=== PATIENT | female | born 1985 | race Caucasian/White ===

== ENCOUNTER 2023-01-06 11:20 | Outpatient (OUT) | payer BC, SELFPAY ==
[2023-01-06 11:49] LABS: Basophils Absolute Auto 0.1 10^3/uL (0.0-0.1); Basophils Percent Auto 0.7 % (0.2-2.0); Eosinophils Absolute Auto 0.1 10^3/uL (0.0-0.7); Eosinophils Percent Auto 0.8 % (0.9-7.0); Hemoglobin 13.3 g/dL (12.0-16.0); Immature Granulocytes Abs Auto 0.02 10^3/uL (0.00-0.03); Immature Granulocytes Pct Auto 0.3 % (0.0-0.5); Lymphocytes Absolute Auto 2.5 10^3/uL (1.2-3.8); Lymphocytes Percent Auto 33.2 % (20.5-60.0); Mean Corpuscular HGB Conc 34.1 g/dL (29.9-35.2); Mean Corpuscular Hemoglobin 31.2 pg (26.7-34.0); Mean Corpuscular Volume 91.5 fL (81.0-99.0); Mean Platelet Volume 9.4 fL (9.5-13.5); Monocytes Absolute Auto 0.6 10^3/uL (0.3-0.8); Neutrophils Absolute Auto 4.3 10^3/uL (1.4-6.5); Platelet Count 302 10^3/uL (150-450); Red Blood Count 4.26 10^6/uL (4.20-5.40); Red Cell Distribution Width 12.9 % (11.0-15.0); White Blood Count 7.6 10^3/uL (4.0-11.0)
[2023-01-06 11:59] LABS: Estimated Average Glucose 111 mg/dL; Glycohemoglobin A1C 5.5 % (4.5-6.2)
[2023-01-06 12:20] LABS: Alanine Aminotransferase 28 U/L (14-59); Albumin Globulin Ratio 1.2; Albumin Level 4.1 g/dL (3.4-5.0); Alkaline Phosphatase 66 U/L (46-116); Anion Gap 11.3; Aspartate Amino Transferase 18 U/L (15-37); BUN Creatinine Ratio 10.8; Bilirubin Total 0.4 mg/dL (0.2-1.0); Calcium 8.8 mg/dL (8.5-10.1); Carbon Dioxide 26.8 mmol/L (21.0-32.0); Chloride 103 mmol/L (98-107); Chol HDL Ratio 5.2; Cholesterol 196 mg/dL (<=200); Estimated GFR (African America >60 (>=60); Estimated GFR (Non-African Ame >60 (>=60); Free T3 2.82 pg/mL (2.18-3.98); Globulin 3.4 g/dL; Glucose 100 mg/dL (74-106); HDL Cholesterol 38 mg/dL (40-60); Potassium 4.1 mmol/L (3.5-5.1); Sodium 137 mmol/L (136-145); Thyroid Stimulating Hormone 1.088 uIU/mL (0.358-3.740); Total Protein 7.5 g/dL (6.4-8.2); Triglycerides 129 mg/dL (<=150); VLDL CHOLESTEROL 25.8 mg/dL
== END 2023-01-06 11:21 | disposition home or self-care (01) ==
PROVIDERS: PCP Nurse Practitioner Family; Visit Provider Nurse Practitioner Family
DX: Z00.00 Encounter for general adult medical examination without abnormal findings (principal)
CPT/HCPCS: 36415; 80053; 80061; 82306; 83036; 83525; 83540; 84436; 84443; 84481; 85025

== ENCOUNTER 2023-06-18 12:41 | Outpatient (OUT) | payer BC, SELFPAY ==
--- NOTE | 2023-06-18 12:44 | US_ITS ---
The [address] [address] Patient Name: KAREN LANGFORD MRN: [id number] date: 1985 Sex: F Assigned Patient Location: Current Patient Location: US Accession/Order Number: [id number] Exam Date: 06/18/2023 12:45 Report Date: 06/18/2023 13:33 At the request of: AMY SHARMA Procedure: US pelvis w/ transvaginal EXAM: Pelvic ultrasound HISTORY: . polycystic ovarian syndrome E28.2 . COMPARISON: None. TECHNIQUE: Transabdominal and transvaginal scanning was performed FINDINGS: Scanning of the pelvis demonstrates an anteverted uterus measuring 10.6 x 4.6 x 5.2 cm. Endometrial complex measures 11 mm. Right ovary measures 4.2 x 1.7 x 2.6 cm. Color-flow is noted. Follicles are noted. There is a 2.9 x 1.6 cm simple cyst in the right ovary. Left ovary measures 2 x 1.6 x 2.5 cm. Color-flow is noted. No masses are noted. Follicles are noted. No fluid is noted in the cul-de-sac. US/US pelvis w/ transvaginal IMPRESSION: 1. Normal-appearing anteverted uterus and normal endometrial complex. 2. Normal left ovary. 3. 2.9 x 1.6 cm simple cyst in the right ovary. Electronically authenticated by: ALEXANDER ORNELAS Date: 06/18/2023 13:33
[2023-06-18 13:31] LABS: Basophils Absolute Auto 0.1 10^3/uL (0.0-0.1); Basophils Percent Auto 0.9 % (0.2-2.0); Eosinophils Absolute Auto 0.1 10^3/uL (0.0-0.7); Eosinophils Percent Auto 0.8 % (0.9-7.0); Hematocrit 37.7 % (36.0-48.0); Hemoglobin 12.3 g/dL (12.0-16.0); Immature Granulocytes Abs Auto 0.01 10^3/uL (0.00-0.03); Immature Granulocytes Pct Auto 0.1 % (0.0-0.5); Lymphocytes Absolute Auto 2.6 10^3/uL (1.2-3.8); Lymphocytes Percent Auto 34.7 % (20.5-60.0); Mean Corpuscular HGB Conc 32.6 g/dL (29.9-35.2); Mean Corpuscular Hemoglobin 30.2 pg (26.7-34.0); Mean Corpuscular Volume 92.6 fL (81.0-99.0); Mean Platelet Volume 9.6 fL (9.5-13.5); Monocytes Absolute Auto 0.5 10^3/uL (0.3-0.8); Monocytes Percent Auto 7.2 % (1.7-12.0); Neutrophils Absolute Auto 4.2 10^3/uL (1.4-6.5); Neutrophils Percent Auto 56.3 % (43.0-75.0); Platelet Count 310 10^3/uL (150-450); Red Blood Count 4.07 10^6/uL (4.20-5.40); Red Cell Distribution Width 12.6 % (11.0-15.0); White Blood Count 7.5 10^3/uL (4.0-11.0)
[2023-06-18 14:08] LABS: Free T4 0.78 ng/dL (0.76-1.46)
[2023-06-18 14:15] LABS: HCG Quantitative <1 mIU/mL; Thyroid Stimulating Hormone 1.042 uIU/mL (0.358-3.740)
[2023-06-18 14:21] LABS: Estimated Average Glucose 117 mg/dL; Glycohemoglobin A1C 5.7 % (4.5-6.2)
[2023-06-19 09:11] LABS: FSH 5.9 mIU/mL (.)
[2023-06-22 00:07] LABS: DHEA, Serum 227 ng/dL (31-701)
== END 2023-06-18 12:42 | disposition home or self-care (01) ==
LOC: US 12:41
PROVIDERS: PCP Nurse Practitioner Family; Visit Provider Obstetrics & Gynecology
DX: E28.2 Polycystic ovarian syndrome (principal); N92.6 Irregular menstruation, unspecified; E34.9 Endocrine disorder, unspecified; N94.89 Other specified conditions associated with female genital organs and menstrual cycle; R14.0 Abdominal distension (gaseous); N83.291 Other ovarian cyst, right side
CPT/HCPCS: 36415; 76830; 76856; 82626; 82627; 83001; 83002; 83036; 84439; 84443; 84702; 85025

== ENCOUNTER 2023-06-28 19:47 | Outpatient (REF) | payer BC, SELFPAY ==
--- OUTSIDE RECORDS SUMMARY | 2023-06-28 19:51 | XMS_ITS | CCD ---
Author Name Unknown Address [address] [place] [address] [address] [place] [address] Organization [facility] Care Team Providers Care Catering Barista Name Role Phone None Unavailable Unavailable Edgar Ball Unavailable Unavailable MISMac, DR HENLEY Primary Care Unavailable GILES, DR HARLAN Del Valle Admitting Unavailabl e GILES, DR HARLAN Del Valle Attending Unavailabl e GILES, DR HARLAN Del Valle Consulting Unavailabl e AZIZA, DR LUCY Schulte Consulting Unavailable ALEXANDER ORNELAS Consulting Unavailable AMY SHARMA Attending Unavailable Problems Problem Classification Problem Date Documented Da te Episodic/Chronic Other lower respiratory disease (3 sources) Shortness of breath; Translations: [SHORTNESS OF BREATH] Onset: 04-24-2022 Episodic Other lower respiratory disease (1 source) Dyspnea, unspecified; Translations: [DYSPNEA UNSPECIFIED] Onset: 04-27-2022 Episodic Pneumonia (except that caused by tuberculosis or sexually transmitted disease) (1 source) Pneumonia, unspecified organism; Translations: [PNEUMONIA UNSPECIFIED ORGANISM] Onset: 04-27-2022 Episodic Unclassified (1 source) Unknown / UNK(Unknown) Onset: 03-11-2013 Unclassified (1 source) UNVACCINATED FOR COVID-19; Translations: [UNVACCINATED FOR COVID-19] Onset: 04-27-2022 Results Test Name Value Interpretation Reference Range Facil ity CBC AUTO DIFFon 04-24-2022 BASO # 0.1 103/ul Normal 0.0-0.1 [facility] Comment on above: Performed By: #### C BC #### [facility] [address] [place], [place] [address] Dr. Jose Marsh Basophils/100 WBC (Bld) 1.1 % Normal 0.2-2.0 [facility] Comment on above: Performed By: #### C BC #### [facility] [address] [place] [address] Dr. Jose Marsh EO # 0.2 103/ul Normal 0.0-0.7 [facility] Comment on above: Performed By: #### C BC #### [facility] [address] [place] [address] Dr. Jose Marsh Eosinophils/100 WBC (Bld) 3.6 % Normal 0.9-7.0 [facility] Comment on above: Performed By: #### C BC #### [facility] [address] [place] [address] Dr. Jose Marsh Erythrocyte distribution width (RBC) [Ratio] 12.5 % Normal 11.0-15.0 [facility] Comment on above: Performed By: #### C BC #### [facility] [address] [place] [address] Dr. Jose Marsh Hematocrit (Bld) [Volume fraction] 39.9 % Normal 36.0-48.0 [facility] Comment on above: Performed By: #### C BC #### [facility] [address] [place] [address] Dr. Jose Marsh Hemoglobin (Bld) [Mass/Vol] 13.9 g/dL Normal 12.0-16.0 [facility] Comment on above: Performed By: #### C BC #### [facility] [address] [place] [address] Dr. Jose Marsh IG # 0.01 10e3/ul Normal 0.00-0.03 [facility] Comment on above: Performed By: #### C BC #### [facility] [address] [place] [address] Dr. Jose Marsh IG % 0.2 % Normal 0.0-0.5 [facility] Comment on above: Performed By: #### C BC #### [facility] [address] [place] [address] Dr. Jose Marsh LYMPH # 1.4 103/ul Normal 1.2-3.8 [facility] Comment on above: Performed By: #### C BC #### [facility] [address] [place] [address] Dr. Jose Marsh Lymphocytes/100 WBC (Bld) 25.6 % Normal 20.5-60.0 [facility] Comment on above: Performed By: #### C BC #### [facility] [address] [place] [address] Dr. Jose Marsh MANUAL DIFF REQ NO Normal [facility] Comment on above: Performed By: #### C BC #### [facility] [address] [place] [address] Dr. Jose Marsh MCH (RBC) [Entitic mass] 30.9 pg Normal 26.7-34.0 [facility] Comment on above: Performed By: #### C BC #### [facility] [address] [place] [address] Dr. Jose Marsh MCHC (RBC) [Mass/Vol] 34.8 g/dL Normal 29.9-35.2 [facility] Comment on above: Performed By: #### C BC #### [facility] [address] [place] [address] Dr. Jose Marsh MCV (RBC) [Entitic vol] 88.7 fL Normal 81.0-99.0 [facility] Comment on above: Performed By: #### C BC #### [facility] [address] [place] [address] Dr. Jose Marsh MONO # 1.0 103/ul Critically high 0.3-0.8 [facility] Comment on above: Performed By: #### C BC #### [facility] [address] [place] [address] Dr. Jose Marsh Monocytes/100 WBC (Bld) 18.4 % Critically high 1.7-12.0 [facility] Comment on above: Performed By: #### C BC #### [facility] [address] [place] [address] Dr. Jose Marsh NEUT # 2.8 103/ul Normal 1.4-6.5 [facility] Comment on above: Performed By: #### C BC #### [facility] [address] [place] [address] Dr. Jose Marsh Neutrophils/100 WBC (Bld) 51.1 % Normal 43.0-75.0 [facility] Comment on above: Performed By: #### C BC #### [facility] [address] [place] [address] Dr. Jose Marsh Platelet mean volume (Bld) [Entitic vol] 9.6 fL Normal 9.5-13.5 [facility] Comment on above: Performed By: #### C BC #### [facility] [address] [place] [address] Dr. Jose Marsh PLT 274 103/ul Normal 150-450 [facility] Comment on above: Performed By: #### C BC #### [facility] [address] [place] [address] Dr. Jose Marsh RBC 4.50 106/ul Normal 4.20-5.40 [facility] Comment on above: Performed By: #### C BC #### [facility] [address] [place] [address] Dr. Jose Marsh WBC 5.6 103/ul Normal 4.0-11.0 [facility] Comment on above: Performed By: #### C BC #### [facility] [address] [place] [address] Dr. Jose Marsh CTA CHEST WO W CONon 11-28-2 022 CTA CHEST WO W CON EXAMINATION: CTA CHEST WO W CON HISTORY: SHORTNESS OF BREATH , elevated d-dimer COMPARISON: No relevant comparison available. TECHNIQUE: Multi-planar CT images were created with IV contrast. Axial, Coronal, and Sagittal images. Dose reduction techniques were achieved by using automated exposure control and/or adjustment of mA and/or kV according to patient size and/or use of iterative reconstruction technique. 3-D reconstruction was performed on a separate workstation. FINDINGS: VASCULATURE: No pulmonary embolism or abnormal opacity. LUNGS: Several small, faint patchy opacities within left lower lobe suggestive of infectious infiltrates. PLEURA: No mass, effusion, or pneumothorax. LAINA: No mass or adenopathy. MEDIASTINUM: No mass or adenopathy. CARDIAC: No enlargement, pericardial effusion, or pericardial thickening. AORTA: No aneurysm or dissection. CHEST WALL: No mass or axillary adenopathy. BONES: No bone lesion or fracture. LIMITED ABDOMEN: No suspicious findings. Limited images of the upper abdomen. OTHER: Negative. IMPRESSION: 1. No pulmonary embolism. 2. Trace amount of left lower lobe opacities favoring pneumonia over atelectasis. Electronically authenticated by: LUCY ERVIN Date: 2022-04-24 11:00 Normal [facility] Covid-19 PCR (CVDTBH)on 03-29 SARS-CoV-2 (COVID-19) RNA MIGUEL+probe Ql (Unsp spec) Not detected Normal NOT DETECTED [facility] Comment on above: Result Comment: When diagnostic testing is negative, the possibility of a false negative should be considered in the context of a patient's recent exposures and the presence of clinical signs and symptoms consistent with SARS-CoV-2. This test is not yet approved or cleared by the [place] FDA. When there are no FDA-approved or cleared tests available, and other criteria are met, FDA can make tests available under an emergency access mechanism called an Emergency Use Authorization (EUA). The EUA for this test is supported by the [employer] of Health and Human Service's declaration that circumstances exist to justify the emergency use of in vitro diagnostics for the detection and/or diagnosis of the virus that causes COVID-19. This EUA will remain in effect for the duration of the COVID-19 declaration justifying emergency of IVDs, unless it is terminated or revoked by the FDA (after which the test may no longer be used). Performed By: #### C VDTBH #### [facility] [address] [place] [address] [address] Jose Marsh D-DIMERon 04-24-2022 D-DIMER 1.47 mg/L FEU Critically high <=0.59 [facility] Comment on above: Performed By: #### D DIM #### [facility] [address] [place] [address] Dr. Jose Marsh D-DIMER COMMENTS SEE BELOW Normal [facility] Comment on above: Result Comment: Incr eases in D-Dimer concentration observed with thromboembolic events can be variable due to localization, size, and age of the thrombus. Therefore, a thromboembolic event cannot be diagnosed with certainty on the basis of the reference range. D-Dimers may also be elevated for a variety of disorders including: advanced age, , coronary disease, cancer, liver disease, infection, inflammation, hematoma, DIC, trauma, post-surgery, diabetes, thrombolytic or anticoagulant therapy, stress, and generalized hospitalization. Performed By: #### D DIM #### [facility] [address] [place] [address] Dr. Jose Marsh INFLUENZA A AND B AGon 04-24 INFLUANE SEE BELOW Normal [facility] Comment on above: Result Comment: Nega tive for Flu A protein angiten. Infection due to Flu A cannot be ruled out. Flu A angiten in the sample may be below the detection limit of the test. Performed By: #### I NFLUAB #### [facility] [address] [place] [address] Dr. Jose Marsh INFLUBNEG SEE BELOW Normal [facility] Comment on above: Result Comment: Nega tive for Flu B protein antigen. Infection due to Flu B cannot be ruled out. Flu B antigen in the sample may be below the detection limit of the test. Performed By: #### I NFLUAB #### [facility] [address] [place] [address] Dr. Jose Marsh INFLUENZA A AG Negative Normal NEGATIVE SEE COMMENT [facility] Comment on above: Performed By: #### I NFLUAB #### [facility] [address] [place] [address] Dr. Jose Marsh INFLUENZA B AG Negative Normal NEGATIVE SEE COMMENT [facility] Comment on above: Performed By: #### I NFLUAB #### [facility] [address] [place] [address] Dr. Jose Marsh INTERNAL CONTROLS Within Normal Limits Normal Wi thin Normal Limits [facility] Comment on above: Performed By: #### I NFLUAB #### [facility] [address] [place] [address] Dr. Jose Marsh TROPONIN, HIGH SENSITIVITYon 04-24-2022 HSTROP <4.0 Normal 4.0-51.3 [facility] Comment on above: Result Comment: CUT- OFF POINTS HAVE BEEN ESTABLISHED BASED ON THE FOURTH UNIVERSAL DEFINITIONS OF MYOCARDIAL INFARCTION. THE UPPER REFERENCE LIMIT (URL) OF TROPONIN, DEFINED THE 99TH PERCENTILE OF cTnI DISTRIBUTION IN A REFERENCE POPULATION, HAS BEEN CONFIRMED THE DECISION THRESHOLD FOR PA DIAGNOSIS. Performed By: #### H STROPN #### [facility] [address] [address] [address] Jose Marsh XR CHEST 1 Von 04-24-2022 XR CHEST 1 V EXAM: Chest x-ray HISTORY: . SHORTNESS OF BREATH . COMPARISON: None. TECHNIQUE: Single view of the chest FINDINGS: Heart and vascularity are unremarkable. Lungs are free of focal infiltrates. There is a slight scoliotic deformity of the spine with convexity to the right. IMPRESSION: No acute heart or lung disease identified. Electronically authenticated by: ALEXANDER ORNELAS Date: 2022-04-24 09:40 Normal [facility] Lab Reportson 11-21-2019 Lab Reports [id number]# 1.00CD:127 Normal [facility] Pre-Certification Formon Pre-Certification Form [id number]# 1.00CD:127 Normal [facility] Ambulatory Clinical Summaryo n 11-10-2019 Ambulatory Clinical Summary {[id number]}CD:[id number] Normal [facility] Facesheeton 11-06-2019 Facesheet [id number] #1.00CD:127 Normal [facility] Physician Referralon 020 Physician Referral [id number]# 1.00CD:127 Normal [facility] Ambulatory Patient Summaryon 08-08-2018 Ambulatory Patient Summary [address], [facility], [address] Visit Summary For KAREN SMITH We would like to thank you for allowing us to assist you with your healthcare needs. Our entire staff strives to provide an excellent experience for our patients and their families. The following includes information regarding your visit. Age: 33 years Sex: FEMALE : 1985 Address: [address] [place] [address], [address] Home: Work: -- Mobile: -- Primary Care Provider: Dario Morton MD Race: White Ethnicity: Not or Language: Bulgarian Health Plan: 1?[facility] Reason for Visit: sinus infection X1 week Follow-Up Information Referral Orders [facility] Established Office Appt Request *Est. 02/08/19 +/- 28 day(s), Future Order, MS reg, Dario Morton MD [facility] Established Office Appt Request *Est. 02/11/19 +/- 4 day(s), Future Order, re headaches, Dario Morton MD Future Appointments [facility] Clinic Phone: -- Fax: -- Appt. Date: 02/11/2019 3:45 PM Scheduled Provider: Dario Morton MD Future Orders [facility] Established Office Appt Request Requested Start Date\Time : 02/08/19 03:00:00 Additional Goals and Instructions: Allergies No Known Medication Allergies Vitals and Measurements this Visit (last charted value for your 08/08/2018 visit) Vital Signs This Visit Temperature Oral: 37 DegC Peripheral Pulse Rate: 77 bpm Pulse Site: Pulse Oximetry Systolic Blood Pressure: 106 mmHg Diastolic Blood Pressure: 62 mmHg BP Site: Left arm SpO2: 97 % Measurements This Visit Height: 171 cm Height (inches): 67 in Weight: 57.3 kg Weight (lb): 126 lb Body Mass Index: 19.6 kg/m2 BSA Measured: 2 m2 Smoking Status Former smoker, quit more than 30 days ago Procedures No Procedures Documented Problems and Health Issues Asthma Migraine Diagnoses This Visit Acute sinusitis (J01.90) Migraines (G43.909) Laboratory or Other Results This Visit (last charted value for your 08/08/2018 visit) No Laboratory or Other Results This Visit Medications and Immunizations Administered During This Visit No medication administered during this visit All Known Current Prescriptions and Reported Medications New Prescriptions this Visit Augmentin 875 mg-125 mg oral tablet (amoxicillin-clavula max) Take 1 tab(s) Oral Every 12 hours scheduled time for 10 Days, 0 refills authorized Prescriptions topiramate 25 mg oral tablet (topiramate) Take 1 tab(s)(25 Milligram) Oral every day for 30 Days, 5 refills authorized Home Medications ibuprofen 200 mg oral tablet (ibuprofen) Take 2 tab(s)(400 Milligram) Oral Every 4 hours for pain Spark (Template Non-Formulary) Take 1 drink(s) Oral every day [facility] Patient Handouton 08-08-2018 Patient Handout [facility] Patient Handouton 07-18-2018 Patient Handout [id number] .00OTGTIFF [facility] Patient Handout [id number] .[facility] 07-17-2018 Ambulatory Patient Summary [address], [facility], [address] Visit Summary For KAREN SMITH We would like to thank you for allowing us to assist you with your healthcare needs. Our entire staff strives to provide an excellent experience for our patients and their families. The following includes information regarding your visit. Age: 33 years Sex: FEMALE : 1985 Address: [address] [place] [address] Home: Work: -- Mobile: -- Primary Care Provider: Selene HARMAN, Dario Del Valle Race: White Ethnicity: Not or Language: Bulgarian Health Plan: 1?[facility] Reason for Visit: New patient exam Follow-Up Information Referral Orders [facility] Established Office Appt Request *Est. 08/14/18 +/- 4 day(s), Future Order, re headaches, Dario Morton MD Future Appointments [facility] Clinic Phone: -- Fax: -- Appt. Date: 08/14/2018 3:30 PM Scheduled Provider: Dario Morton MD Future Orders [facility] Established Office Appt Request Requested Start Date\Time : 08/14/18 15:30:00 Additional Goals and Instructions: Allergies No Known Medication Allergies Vitals and Measurements this Visit (last charted value for your 07/17/2018 visit) Vital Signs This Visit Peripheral Pulse Rate: 69 bpm Pulse Site: Pulse Oximetry Systolic Blood Pressure: 104 mmHg Diastolic Blood Pressure: 62 mmHg BP Site: Left arm SpO2: 99 % Measurements This Visit Height: 171 cm Height (inches): 67 in Weight: 60.2 kg Weight (lb): 132 lb Body Mass Index: 20.59 kg/m2 BSA Measured: 2 m2 Smoking Status Former smoker, quit more than 30 days ago Procedures section LEEP procedure of cervix (02/2009) Problems and Health Issues Asthma Migraine Urinary symptom change Diagnoses This Visit Asthma (J45.909) Migraines (G43.909) Subjective change in urination (R39.198) Laboratory or Other Results This Visit (last charted value for your 07/17/2018 visit) Urinalysis 07/17/2018 5:02 PM Leukocytes Urine Dipstick: Negative Nitrite Urine Dipstick: Negative Urobilinogen Urine Dipstick: 0.2 mg/dl Protein Urine Dipstick: Negative pH Urine Dipstick: 6.5 Blood Urine Dipstick: Negative Specific [place] Urine Dipstick: 1.020 Ketones Urine Dipstick: Other: 15mg/dL Bilirubin Urine Dipstick: Negative Glucose Urine Dipstick: Negative Urine Color Urine Dipstick: Yellow Urine Appearance Urine Dipstick: Slightly Cloudy Medications and Immunizations Administered During This Visit No medication administered during this visit All Known Current Prescriptions and Reported Medications New Prescriptions this Visit topiramate 25 mg oral tablet (topiramate) Take 1 tab(s)(25 Milligram) Oral every day for 30 Days, 5 refills authorized Prescriptions No previous prescriptions documented Home Medications ibuprofen 200 mg oral tablet (ibuprofen) Take 2 tab(s)(400 Milligram) Oral Every 4 hours for pain Spark (Template Non-Formulary) Take 1 drink(s) Oral every day [facility] Patient Handouton 07-17-2018 Patient Handout [facility] Encounters Encounter Date Encounter Type Care Provider Facility Start: 06-18-2023 End: 06-18-2023 ambulatory AMY SHARMA Not Available Start: 04-24-2022 End: 04-24-[address] HENLEY [facility] Facility: Start: 03-11-2013 Ambulatory None Facility:[facility] Payers Date Payer Category Payer Unknown [id number] 1985 Unknown [id number] 1960 Unknown [id number] Summary Purpose Family History No Family History Records FoundNo Family History Records FoundNo Family History Records FoundNo Family History Records FoundNo Family History Records Found Advance Directives No Advanced Directives Records FoundNo Advanced Directives Records FoundNo Advanced Directives Records FoundNo Advanced Directives Records FoundNo Advanced Directives Records Found Hospital Course Note [facility] Cl inic Clinical Discharge Summary PERSON INFORMATION Name KAREN SMITH Age 33 Years [birth year] Sex FEMALE Language Bulgarian PCP Sleene HARMAN, Dario Del Valle Marital Status Med Service Acct# Arrival 08/08/18 09:20:14 Visit Reason Acuity LOS 000 00:12 Address: [address] [place] [address] Comment: PROVIDER INFORMATION VITALS INFORMATION Vital Sign Triage Latest Temp Oral 37 DegC 37 DegC Temp Temporal Temp Intravascular Temp Axillary Temp Rectal 02 Sat 97 % 97 % Respiratory Rate Peripheral Pulse Rate 77 bpm 77 bpm Apical Heart Rate Blood Pressure 106 mmHg / 62 mmHg 106 mmHg / 62 mmHg Comment: MEDICAL INFORMATION Allergy Info: No Known Medication Allergies Prescriptions Given: Prescription Display amoxicillin-clavulanate (Augmentin 875 mg-125 mg oral tablet) 1 tab(s), PO, q12hr, x 10 day(s), # 20 tab(s), 0 Refill(s), 08/18/18, [facility] [place] [address], 1 tab(s) PO q12hr,x10 day(s) Medication List: Fill New (more content not included)... Additional Source Comments INFORMATION SOURCE (unrecogn ized section and content) DATE CREATED AUTHOR 11/20/2017 [facility] DATE CREATED AUTHOR AUTHOR'S ORGANIZ ATION 02/12/[address] [facility] DATE CREATED AUTHOR AUTHOR'S ORGANIZ ATION 10/22/2020 [facility] DATE CREATED AUTHOR AUTHOR'S ORGANIZ ATION 04/27/2022 Sheldon Garsiaue [facility] DATE CREATED AUTHOR AUTHOR'S CHA ATION 06/18/2023 [facility] dical Specialists [facility] FOR RECORDS PERTAINING TO PATIENTS WHO ARE OR HAVE BEEN ENROLLED IN A CHEMICAL DEPENDENCY/SUBSTANCEABUSE PROGRAM, SOME INFORMATION MAY BE OMITTED. This clinical summary was aggregated from multiple sources. Caution should be exercised in using it in the provision of clinical care. This summary normalizes information from multiple sources, and as a consequence, information in this document may materially change the coding, format and clinical context of patient data. In addition, data may be omitted in some cases. CLINICAL DECISIONS SHOULD BE BASED ON THE PRIMARY CLINICAL RECORDS. [facility] [employer] provides no warranty or guarantee of the accuracy or completeness of information in this document.
[2023-07-04 10:09] LABS: Age Gdln ACOG Testing Note (.); HPV Aptima Negative (Negative); IGP, Aptima HPV, rfx 16/18,45 Note (.)
== END 2023-06-28 19:48 | disposition home or self-care (01) ==
LOC: LAB 19:47
PROVIDERS: PCP Nurse Practitioner Family; Visit Provider Obstetrics & Gynecology
DX: Z01.419 Encounter for gynecological examination (general) (routine) without abnormal findings (principal)
CPT/HCPCS: 87624; G0145

== ENCOUNTER 2023-07-09 | Outpatient (REF) | payer BC, SELFPAY ==
--- OUTSIDE RECORDS SUMMARY | 2023-07-13 12:36 | XMS_ITS | CCD ---
Author Name Unknown Address [address] [place] [address] Organization [facility] Care Team Providers Care Metal Solderer Name Role Phone None Unavailable Unavailable Edgar Ball [facility]available [facility] Primary Care Unavailable GILES, DR HARLAN Del Valle Admitting Tad SKAGGS, DR HARLAN Del Valle Attending Unavaillucrecia SKAGGS, DR HARLAN Del Valle Consulting Unavaillucrecia ERVIN, DR LUCY Schulte Consulting Unavailable ALEXANDER ORNELAS Consulting Unavailable Henry Dee MD Primary Care Provider [phone] AMY CAPONE Attending Unavailable AMY CAPONE Attending Unavailable AMY CAPONE Attending Unavailable Medications Current Medications Medication Drug Class(es) Dates Sig (Normalized) Sig (Original) citalopram 10 mg oral tablet (2 sources) Serotonin Reuptake Inhibitor Start: 06-18-2023 End: 07-18-2023 take 1 tablet by mouth in the morning citalopram (CeleXA) 10 MG tablet Indications: Mood changes Take 1 tablet (10 mg) by mouth in the morning. 30 tablet 11 06/18/2023 07/18/2023 Active SUMAtriptan 100 mg oral tablet (2 sources) Serotonin-1b and Serotonin-1d Receptor Agonist take 1 tablet by mouth once SUMAtriptan (Imitrex) 100 MG tablet Take 100 mg by mouth 1 (one) time if needed 0 Active Problems Problem Classification Problem Date Documented Da te Episodic/Chronic Menstrual disorders (2 sources) Irregular periods; Translations: [Irregular menstruation, unspecified] Onset: 06-18-2023 06-18-2023 Chronic Other endocrine disorders (2 sources) Disorder of endocrine system; Translations: [Endocrine disorder, unspecified] Onset: 06-18-2023 06-18-2023 Episodic Other female genital disorders (2 sources) Abdominal bloating; Translations: [Other specified conditions associated with female genital organs and menstrual cycle] Onset: 06-18-2023 06-18-2023 Episodic Other lower respiratory disease (3 sources) Shortness [...] Results Test Name Value Interpretation Reference Range Facility IGP,APTIMA HPV,AGE GDLNon AGE GDLN ACOG TESTING Note . [facility] Comment on above: TESTS RESULT FLAG UN ITS REF RANGE LAB Clinician Provided Cytology Information Source.............Cervix;Endocervix No. of containers..01 ThinPrep Vial Age Algo ACOG Olimpia... FLAG LEGEND: L-Low Normal,H-High Normal,LL-Alert Low,HH-Alert High <-Panic Low,>-Panic High,A-Abnormal,AA-Critical Abnormal Performed at: 01 =[address] [place] [address] Genesis Mohamud MD, HPV APTIMA Negative Negative [facility] Comment on above: This nucleic acid am plification test detects fourteen high- risk HPV types (16,18,31,33,35,39,45,51,52,56,58,59,66,68) without differentiation. Performed at: = - [address], [place] [id number] [place] Machine Operator: Genesis Mohamud MD, Phone: [phone] Performed at: - [address], [place] [id number] [place] Machine Operator: Genesis Mohamud MD, Phone: [phone] IGP, APTIMA HPV, RFX 16/18,45 Note . [facility] Comment on above: TESTS RESULT FLAG UN ITS REF RANGE LAB DIAGNOSIS: 02 NEGATIVE FOR INTRAEPITHELIAL LESION OR MALIGNANCY. Specimen adequacy: 02 Satisfactory for evaluation. Endocervical and/or squamous metaplastic cells (endocervical component) are present. Performed by: 02 [employer] Administrator (ASCP) . 02 Note: Note 02 The Pap smear is a screening test designed to aid in the detection of premalignant and malignant conditions of the uterine cervix. It is not a diagnostic procedure and should not be used as the sole means of detecting cervical cancer. Both false-positive and false-negative reports do occur. Test Methodology: Note 02 This liquid based ThinPrep(R) pap test was screened with the use of an image guided system. HPV Genotype Reflex Note 02 Criteria not met, HPV Genotype not performed. FLAG LEGEND: L-Low Normal,H-High Normal,LL-Alert Low,HH-Alert High <-Panic Low,>-Panic High,A-Abnormal,AA-Critical Abnormal Performed at: 02 [facility] [address] [place] [address] Genesis Mohamud MD, BRUSH-SPATULA CERVIX ENDOCERVIX [facility] CBC AUTO DIFFon 04-24-2022 BASO # 0.1 103/ul Normal 0.0-0.1 [facility] Comment on above: Performed By: #### C BC #### [facility] [address] [place] [address] Dr. Jose Marsh Basophils/100 WBC (Bld) 1.1 % Normal 0.2-2.0 [facility] Comment on above: Performed By: #### C BC #### [facility] [address] [place] [address] Dr. Jose Marsh EO # 0.2 103/ul Normal 0.0-0.7 [facility] Comment on above: Performed By: #### C BC #### [facility] [address] [place] [address] Dr. Jose Marsh Eosinophils/100 WBC (Bld) 3.6 % Normal 0.9-7.0 [facility] Comment on above: Performed By: #### C BC #### [facility] [address] [place] [address] Dr. Jose Marsh Erythrocyte distribution width (RBC) [Ratio] 12.5 % Normal 11.0-15.0 [facility] Comment on above: Performed By: #### C BC #### [facility] [address] [place] [address] Dr. Jose Marsh Hematocrit (Bld) [Volume fraction] 39.9 % Normal 36.0-48.0 [facility] Comment on above: Performed By: #### C BC #### [facility] [address] [place] [address] Dr. Jose Marsh Hemoglobin (Bld) [Mass/Vol] 13.9 g/dL Normal 12.0-16.0 [facility] Comment on above: Performed By: #### C BC #### [facility] [address] [place] [address] Dr. Jose Marsh IG # 0.01 10e3/ul Normal 0.00-0.03 [facility] Comment on above: Performed By: #### C BC #### [facility] [address] [place] [address] Dr. Jose Marsh IG % 0.2 % Normal 0.0-0.5 [facility] Comment on above: Performed By: #### C BC #### [facility] [address] [place] [address] Dr. Jose Marsh LYMPH # 1.4 103/ul Normal 1.2-3.8 [facility] Comment on above: Performed By: #### C BC #### [facility] [address] [place] [address] Dr. Jose Marsh Lymphocytes/100 WBC (Bld) 25.6 % Normal 20.5-60.0 [facility] Comment on above: Performed By: #### C BC #### [facility] [address] [place] [address] Dr. Jose Marsh MANUAL DIFF REQ NO Normal [facility] Comment on above: Performed By: #### C BC #### [facility] [address] [place] [address] Dr. Jose Marsh MCH (RBC) [Entitic mass] 30.9 pg Normal 26.7-34.0 [facility] Comment on above: Performed By: #### C BC #### [facility] [address] [place] [address] Dr. Joes Marsh MCHC (RBC) [Mass/Vol] 34.8 g/dL Normal 29.9-35.2 [facility] Comment on above: Performed By: #### C BC #### [facility] [address] [place] [address] Dr. Jose Marsh MCV (RBC) [Entitic vol] 88.7 fL Normal 81.0-99.0 [facility] Comment on above: Performed By: #### C BC #### [facility] [address] [place] [address] Dr. Jose Marsh MONO # 1.0 103/ul Critically high 0.3-0.8 [facility] Comment on above: Performed By: #### C BC #### [facility] [address] [place] [address] Dr. Jose Marsh Monocytes/100 WBC (Bld) 18.4 % Critically high 1.7-12.0 [facility] Comment on above: Performed By: #### C BC #### [facility] [address] [place] [address] Dr. Jose Marsh NEUT # 2.8 103/ul Normal 1.4-6.5 [facility] Comment on above: Performed By: #### C BC #### [facility] [address] [place] [address] Dr. Jose Marsh Neutrophils/100 WBC (Bld) 51.1 % Normal 43.0-75.0 [facility] Comment on above: Performed By: #### C BC #### [facility] [address] [place] [address] Dr. Jose Marsh Platelet mean volume (Bld) [Entitic vol] 9.6 fL Normal 9.5-13.5 [facility] Comment on above: Performed By: #### C BC #### [facility] [address] [place] [address] Dr. Jose Marsh PLT 274 103/ul Normal 150-450 [facility] Comment on above: Performed By: #### C BC #### [facility] [address] [place] [address] Dr. Jose Marsh RBC 4.50 106/ul Normal 4.20-5.40 [facility] Comment on above: Performed By: #### C BC #### [facility] [address] [place], [place] [address] Dr. Jose Marsh WBC 5.6 103/ul Normal 4.0-11.0 [facility] Comment on above: Performed By: #### C BC #### [facility] [address] [place], [place] [address] Dr. Jose Marsh CTA CHEST WO W CONon 022 CTA CHEST WO W CON EXAMINATION: [...] LUCY ERVIN Date: 2022-04-24 11:00 Normal [facility] Covid-19 PCR ([facility])on 03-29 SARS-CoV-2 (COVID-19) RNA MIGUEL+probe Ql (Unsp spec) Not detected Normal NOT DETECTED [facility] Comment on above: Result Comment: When diagnostic [...] for this test is supported by the Application Analyst of Health and Human Service's declaration that [...] used). Performed By: #### C VDTBH #### [facility] [address] [place] [address] Dr. Jose Marsh D-DIMERon 04-24-2022 D-DIMER 1.47 mg/L FEU Critically high <=0.59 [facility] Comment on above: Performed By: #### D DIM #### [facility] [address] [place] [address] Dr. Jose Marsh D-DIMER COMMENTS SEE BELOW Normal [facility] Comment on above: Result Comment: Incr eases [...] hospitalization. Performed By: #### D DIM #### [facility] [address] [place] [address] Dr. Jose Marsh INFLUENZA A AND B AGon 04-24 INFLUANEGH SEE BELOW Normal [facility] Comment on above: Result Comment: Nega tive for Flu A protein angiten. Infection due to Flu A cannot be ruled out. Flu A angiten in the sample may be below the detection limit of the test. Performed By: #### I NFLUAB #### [facility] [address] [place] [address] Dr. Jose Marsh INFLUBNEGH SEE BELOW Normal [facility] Comment on above: Result Comment: Nega tive for Flu B protein antigen. Infection due to Flu B cannot be ruled out. Flu B antigen in the sample may be below the detection limit of the test. Performed By: #### I NFLUAB #### [facility] [address] [place] [address] Dr. Jose Marsh INFLUENZA A AG Negative Normal NEGATIVE SEE COMMENT [facility] Comment on above: Performed By: #### I NFLUAB #### [facility] [address] [place] [address] Dr. Jose Marsh INFLUENZA B AG Negative Normal NEGATIVE SEE COMMENT [facility] Comment on above: Performed By: #### I NFLUAB #### [facility] [address] [place] [address] Dr. Jose Marsh INTERNAL CONTROLS Within Normal Limits Normal Wi thin Normal Limits [facility] Comment on above: Performed By: #### I NFLUAB #### [facility] [address] [place] [address] Dr. Jose Marsh TROPONIN, HIGH SENSITIVITYon 04-24-2022 HSTROP <4.0 Normal 4.0-51.3 [facility] Comment on above: Result Comment: CUT- OFF POINTS HAVE BEEN ESTABLISHED BASED ON THE FOURTH UNIVERSAL DEFINITIONS OF MYOCARDIAL INFARCTION. THE UPPER REFERENCE LIMIT (URL) OF TROPONIN, DEFINED THE 99TH PERCENTILE OF cTnI DISTRIBUTION IN A REFERENCE POPULATION, HAS BEEN CONFIRMED THE DECISION THRESHOLD FOR RI DIAGNOSIS. Performed By: #### H STROPN #### [facility] [address] [place] [address] Dr. Jose Marsh XR CHEST 1 Von [...] by: ALEXANDER ORNELAS Date: 2022-04-24 09:40 Normal [facility] Reportson 11-21-2019 Lab Reports [id number]. 00CD:127 [facility] Pre-Certification Formon Pre-Certification Form [id number]#1. 00CD:127 [facility] Ambulatory Clinical Summaryo n 11-10-2019 Ambulatory Clinical Summary {[id number]}CD:[id number] [facility] Facesheeton 11-06-2019 Facesheet [id number] .00CD:127 [facility] Physician Referralon 020 Physician Referral [id number]. 00CD:127 [facility] Ambulatory Patient Summaryon 08-08-2018 Ambulatory Patient Summary [address], [address] Visit Summary For CARLOS SMITH We would like to thank you for allowing us to assist you with your healthcare needs. Our entire staff strives to provide an excellent experience for our patients and their families. The following includes information regarding your visit. Age: 33 years Sex: FEMALE : 1985 Address: [address] [place] [address], [facility] Home: Work: -- Mobile: -- Primary Care Provider: Dario Morton MD Race: White Ethnicity: Not or Language: Kuwaiti Health Plan: 1?[facility] Reason for Visit: sinus infection X1 week Follow-Up Information Referral Orders R Established Office Appt Request *Est. 02/08/19 +/- 28 day(s), Future Order, MS reg, MD ULYSSES [place] Established Office Appt Request *Est. 02/11/19 +/- 4 day(s), Future Order, re headaches, Dario Morton MD Future Appointments [facility] Clinic Phone: -- Fax: -- Appt. Date: [...] Visit Augmentin 875 mg-125 mg oral tablet (amoxicillin-clavulan ate) Take 1 tab(s) Oral Every 12 hours scheduled time for 10 Days, 0 refills authorized Prescriptions topiramate 25 mg oral tablet (topiramate) Take 1 tab(s)(25 Milligram) Oral every day for 30 Days, 5 refills authorized Home Medications ibuprofen 200 mg oral tablet (ibuprofen) Take 2 tab(s)(400 Milligram) Oral Every 4 hours for pain Spark (Template Non-Formulary) Take 1 drink(s) Oral every day [facility] Patient Handouton 08-08-2018 Patient Handout [facility] Patient Handouton 07-18-2018 Patient Handout [id number] 0OTGTIFF [facility] Patient Handout [id number] 0OTGTIFF [facility] Ambulatory Patient Summaryon 07-17-2018 Ambulatory Patient Summary [address], [facility], [address] Visit Summary For CARLOS SMITH We would like to thank you for allowing us to assist you with your healthcare needs. Our entire staff strives to provide an excellent experience for our patients and their families. The following includes information regarding your visit. Age: 33 years Sex: FEMALE : 1985 Address: [address] [place] [address], [facility] Home: Work: -- Mobile: -- Primary Care Provider: Selene HARMAN, Dario Del Valle Race: White Ethnicity: Not or Language: Kuwaiti Health Plan: 1?[facility] Reason for Visit: New patient exam Follow-Up Information Referral Orders [facility] Established Office Appt Request *Est. 08/14/18 +/- 4 day(s), Future Order, re headaches, Dario Morton MD Future Appointments [facility] Clinic Phone: -- Fax: -- Appt. Date: [...] Dipstick: 6.5 Blood Urine Dipstick: Negative Specific [place] Urine Dipstick: 1.020 Ketones Urine Dipstick: Other: [...] Non-Formulary) Take 1 drink(s) Oral every day [facility] Patient Handouton 07-17-2018 Patient Handout [facility] Vital Signs Date Time Vital Sign Value Performing Clinician Faci lity 06-28-2023 10:56-0500 Body mass index (BMI) [Ratio] 25.63 kg/m2 Amy Liborio DO Work Phone: [facility] 06-28-2023 10:56-0500 Body weight 72.03 kg Amy Liborio DO Work Phone: [facility] 06-28-2023 10:56-0500 Diastolic blood pressure 70 mm[Hg] Amy Liborio DO Work Phone: [facility] 06-28-2023 10:56-0500 Systolic blood pressure 108 mm[Hg] Amy Liborio DO Work Phone: [facility] Healthcare Encounters Encounter Date Encounter Type Care Provider Facility Start: 07-09-2023 End: 07-09-2023 ambulatory AMY LIBORIO Not Available Start: 06-28-2023 Clinisync Result Encounter Amy Liborio DO Work Phone: [facility] External Department Unsolicited Start: 06-28-2023 Clinisync Result Encounter Amy Liborio DO Work Phone: [facility] External Department Unsolicited Start: 06-28-2023 End: 06-28-2023 ambulatory AMY LIBORIO Not Available Start: 06-28-2023 End: 06-28-2023 Patient encounter procedure Amy Liborio DO Work Phone: [facility] Work Phone: Start: 06-28-2023 End: 06-28-2023 Periodic preventive med est patient 18-39 yrs Amy Liborio DO Work Phone: [facility] Comment on above: Well woman exam with routine gynecological exam Start: 06-18-2023 End: 06-18-2023 ambulatory AMY LIBORIO Not Available Start: 04-24-2022 End: 04-24-[address] [facility] [facility] Facility: Start: 03-11-2013 Ambulatory None Facility:[facility] Procedures Date Procedure Procedure Detail Performing Clinician Start: 06-28-2023 IGP,APTIMA HPV,AGE GDLN Amy Liborio DO Work Phone: Plan of Treatment Date Care Activity Detail Author Start: 07-09-2023 End: 07-09-2023 Patient encounter procedure 07/09/2023 2:30 PM EST Procedure Visit [facility] [address] [place] [place] [address] Amy Capone DO [address] [place] [address] Abnormal uterine bleeding (AUB); Preop examination [facility] Comment on above: Abnormal uterine ble eding (AUB); Preop examination Cytology Cervical or vaginal smear or scraping study Pap Smear Pathology and Cytology Routine Well woman exam with routine gynecological exam Ordered: 06/28/2023 [facility] Work Phone: Comment on above: Ordered: 06/28/2023 Human papilloma viru s DNA [Presence] in Unspecified specimen by Probe with amplification HPV DNA probe, amplified Microbiology Routine Well woman exam with routine gynecological exam Ordered: 06/28/2023 [facility] Comment on above: Ordered: 06/28/2023 Payers Date Payer Category Payer Unknown BCBS BCBS xxxxxx [id number] 2021-Present [phone] [address] [place] [address] [id number] 1985 Unknown [id number] 1985 Unknown [id number] 1985 Unknown [id number] 1985 Unknown [id number] 1960 Unknown [id number] Social History Date Type Detail Facility Tobacco smoking stat [facility] Tobacco smoking consumption unknown [facility] Start: 1985 Sex Assigned At Female [facility] Start: 06-18-2023 Gender identity Identifies as female gender (finding) [facility] Start: 06-18-2023 Sexual orientation Heterosexual (fin ding) [facility] History of Present illness Narrative 06-28-2023 Tiffanie Ramirez LPN - 06/28/2023 10:20 AM EST Note Date & Type Note Facility 06-28-2023 History of Presen t illness Narrative Reason for Appointment: Patient ID: Carlos Langford is a 38 y.o. female who presents for Well Women Visit Patient presents today for Annual Exam appointment. Current Medications: has a current medication list which includes the following prescription(s): citalopram and sumatriptan. Medical History: Active Ambulatory Problems Diagnosis Date Noted Menstruation, irregular 06/18/2023 Hormone imbalance 06/18/2023 Abdominal bloating associated with menstruation 06/18/2023 Resolved Ambulatory Problems Diagnosis Date Noted No Resolved Ambulatory Problems No Additional Past Medical History No family history on file. Social History Tobacco Use Smoking status: Not on file Smokeless tobacco: Not on file Substance Use Topics Alcohol use: Not on file Drug use: Not on file History reviewed. No pertinent surgical history. No Known Allergies Review of Systems: Review of Systems Constitutional: Negative. HENT: Negative. Eyes: Negative. Respiratory: Negative. Cardiovascular: Negative. Gastrointestinal: Negative. Genitourinary: Negative. Musculoskeletal: Negative. Skin: Negative. Neurological: Negative. All other systems reviewed and are negative. Hematological: Negative. Endocrine: Negative. Allergic/Immunologic: Negative. Objective Physical Exam Constitutional: Appearance: Normal appearance. She is well-developed. Genitourinary: Vulva normal. Breasts: Breasts are soft. Right: Normal. Left: Normal. Cardiovascular: Rate and Rhythm: Normal rate and regular rhythm. Pulmonary: Effort: Pulmonary effort is normal. Breath sounds: Normal breath sounds. Abdominal: General: Bowel sounds are normal. There is no distension. Palpations: Abdomen is soft. Tenderness: There is no abdominal tenderness. There is no guarding or rebound. Musculoskeletal: General: No swelling. Normal range of motion. Right lower leg: No edema. Left lower leg: No edema. Neurological: Mental Status: She is alert and oriented to person, place, and time. Skin: General: Skin is warm and dry. Psychiatric: Mood and Affect: Mood normal. Behavior: Behavior normal. Vitals and nursing note reviewed. Exam conducted with a certified legal secretary specialist present. Vitals: Estimated body mass index is 25.63 kg/m as calculated from the following: Height as of 06/18/23: 5' 6 . Weight as of this encounter: 158 lb 12.8 oz. BP: 108/70 Patient's last menstrual period was 06/02/2023. Assessment/Plan Encounter Diagnosis Name Primary? Well woman exam with routine gynecological exam Patient presents today for an annual exam. Patient states she is doing well and has complaints of irregular bleeding. Pap was obtained without difficulty. RTC on 07/09/23 for endo bx and pre-op. Follow Up: Patient is to return in one year for annual unless needed otherwise. Documented by Tiffanie Ramirez LPN on behalf of: Amy Capone DO documented in this encounter [facility] Evaluation note Note Date & Type Note Facility Evaluation note Diagnosis Well woman exam with routine gynecological exam Routine gynecological examination Abnormal uterine bleeding (AUB) Preop examination Unspecified pre-operative examination documented in this encounter [facility] Summary Purpose Family History No Family History Records FoundNo Family History Records FoundNo Family History Records FoundNo Family History Records FoundNo Family History Records Found Advance Directives No Advanced Directives Records FoundNo Advanced Directives Records FoundNo Advanced Directives Records FoundNo Advanced Directives Records FoundNo Advanced Directives Records Found Hospital Course Note [facility] Cl inic Clinical Discharge Summary PERSON INFORMATION Name CARLOS SMITH Age 33 Years [birth year] Sex FEMALE Language Kuwaiti PCP Selene HARMAN, Dario Del Valle Marital Status Med Service Acct# Arrival 08/08/18 09:20:14 Visit Reason Acuity LOS 000 00:12 Address: [address] [place] [address] Comment: PROVIDER INFORMATION VITALS INFORMATION Vital Sign [...] # 20 tab(s), 0 Refill(s), 08/18/18, Pharmacy: [facility] [facility], 1 tab(s) PO q12hr,x10 day(s) Medication List: Fill New (more content not included)... Additional Source Comments INFORMATION SOURCE (unrecogn ized section and content) DATE CREATED AUTHOR 11/20/2017 [facility] DATE CREATED AUTHOR AUTHOR'S ORGANIZ ATION 02/12/2019 [facility] DATE CREATED AUTHOR AUTHOR'S ORGANIZ ATION 10/22/2020 [facility] DATE CREATED AUTHOR AUTHOR'S ORGANIZ ATION 04/27/2022 [facility] DATE CREATED AUTHOR AUTHOR'S ORGANIZ ATION 07/10/2023 [facility] [facility] dical Specialists EPIC Reason for Visit (unrecogniz ed section and content) Reason Comments Well Women Visit Care Teams (unrecognized sec tion and content) Metal Solderer Relationship Specialty Start Date End Date Henry Dee MD [address] [place] [address] PCP - General Family Medicine 06/28/23 Metal Solderer Relationship Specialty Start Date End Date Henry Dee MD [address] [place] [address] PCP - General Family Medicine 06/28/23 FOR RECORDS PERTAINING TO PATIENTS WHO ARE [...] BE BASED ON THE PRIMARY CLINICAL RECORDS. [facility] [employer] provides no warranty or guarantee of the accuracy or completeness of information in this document.
== END 2023-07-09 00:01 | disposition home or self-care (01) ==
LOC: LAB
PROVIDERS: PCP Nurse Practitioner Family; Visit Provider Obstetrics & Gynecology
DX: N93.9 Abnormal uterine and vaginal bleeding, unspecified (principal)
CPT/HCPCS: 88305

== ENCOUNTER 2023-07-25 08:59 | Outpatient (OUT) | payer BC, SELFPAY ==
--- OUTSIDE RECORDS SUMMARY | 2023-07-25 09:24 | XMS_ITS | CCD ---
Author Name Unknown Address [address] [place] [address] Organization [facility] Care Team Providers Care Support Specialist Name Role Phone None Unavailable Unavailable Edgar Ball Unavailable Unavailable [facility] DR HENLEY Primary Care Unavailable GILES, DR HARLAN Del Valle Admitting Tad SKAGGS, DR HARLAN Del Valle Attending Unavaillucrecia SKAGGS, DR HARLAN Del Valle Consulting Unavaillucrecia ERVIN, DR LUCY Schulte Consulting Unavailable ALEXANDER ORNELAS Consulting Unavailable Henry Dee MD Primary Care Provider [phone] AMY CAOPNE Attending Unavailable AMY CAPONE Attending Unavailable AMY [...] GDLNon AGE GDLN ACOG TESTING Note . [facility] Comment on above: TESTS RESULT FLAG UN ITS REF RANGE LAB Clinician Provided Cytology Information Source.............Cervix;Endocervix No. of containers..01 ThinPrep Vial Age Algo ACOG Olimpia... FLAG LEGEND: L-Low Normal,H-High Normal,LL-Alert Low,HH-Alert High <-Panic Low,>-Panic High,A-Abnormal,AA-Critical Abnormal Performed at: 01 =[address] [place] [address] Genesis Mohamud MD, HPV APTIMA Negative Negative [facility] Comment on above: This nucleic acid am plification test detects fourteen high- risk HPV types (16,18,31,33,35,39,45,51,52,56,58,59,66,68) without differentiation. Performed at: = - [address], [place] [id number] Braided Band Assembler: Genesis Mohamud MD, Phone: [phone] Performed at: - [address], [place] [id number] Braided Band Assembler: Genesis Mohamud MD, Phone: [phone] IGP, APTIMA HPV, RFX 16/18,45 Note . [facility] Comment on above: TESTS RESULT FLAG UN ITS REF RANGE LAB DIAGNOSIS: 02 NEGATIVE FOR INTRAEPITHELIAL LESION OR MALIGNANCY. Specimen adequacy: 02 Satisfactory for evaluation. Endocervical and/or squamous metaplastic cells (endocervical component) are present. Performed by: 02 Bekah Zee Arcgis Developer (ASCP) . 02 Note: Note 02 The [...] High,A-Abnormal,AA-Critical Abnormal Performed at: 02 [facility] [address] [place] [address] Genesis Mohamud MD, BRUSH-SPATULA CERVIX ENDOCERVIX [facility] CBC AUTO DIFFon 04-24-2022 BASO # 0.1 103/ul Normal 0.0-0.1 [facility] Comment on above: Performed By: #### C BC #### [facility] [address] [place] [address] Dr. Jose Marsh Basophils/100 WBC (Bld) 1.1 % Normal 0.2-2.0 [facility] Comment on above: Performed By: #### C BC #### [facility] [address] [place] [address] Dr. Jose Marsh EO # 0.2 103/ul Normal 0.0-0.7 [facility] Comment on above: Performed By: #### C BC #### [facility] [address] [place] [address] Dr. Jose Marsh Eosinophils/100 WBC (Bld) 3.6 % Normal 0.9-7.0 [facility] Comment on above: Performed By: #### C BC #### [facility] [address] [place] [address] Dr. Jose Marsh Erythrocyte distribution width (RBC) [Ratio] 12.5 % Normal 11.0-15.0 [facility] Comment on above: Performed By: #### C BC #### [facility] [address] [place] [address] Dr. Jose Marsh Hematocrit (Bld) [Volume fraction] 39.9 % Normal 36.0-48.0 [facility] Comment on above: Performed By: #### C BC #### [facility] [address] [place] [address] Dr. Jose Marsh Hemoglobin (Bld) [Mass/Vol] 13.9 g/dL Normal 12.0-16.0 [facility] Comment on above: Performed By: #### C BC #### [facility] [address] [place] [address] Dr. Jose Marsh IG # 0.01 10e3/ul Normal 0.00-0.03 [facility] Comment on above: Performed By: #### C BC #### [facility] [address] [place] [address] Dr. Jose Marsh IG % 0.2 % Normal 0.0-0.5 [facility] Comment on above: Performed By: #### C BC #### [facility] [address] [place] [address] Dr. Jose Marsh LYMPH # 1.4 103/ul Normal 1.2-3.8 [facility] Comment on above: Performed By: #### C BC #### [facility] [address] [place] [address] Dr. Jose Marsh Lymphocytes/100 WBC (Bld) 25.6 % Normal 20.5-60.0 [facility] Comment on above: Performed By: #### C BC #### [facility] [address] [place] [address] Dr. Jose Marsh MANUAL DIFF REQ NO Normal [facility] Comment on above: Performed By: #### C BC #### [facility] [address] [place] [address] Dr. Jose Marsh MCH (RBC) [Entitic mass] 30.9 pg Normal 26.7-34.0 [facility] Comment on above: Performed By: #### C BC #### [facility] [address] [place] [address] Dr. Jose Marsh MCHC (RBC) [Mass/Vol] 34.8 g/dL Normal 29.9-35.2 [facility] Comment on above: Performed By: #### C BC #### [facility] [address] [place] [address] Dr. Jose Marsh MCV (RBC) [Entitic vol] 88.7 fL Normal 81.0-99.0 [facility] Comment on above: Performed By: #### C BC #### [facility] [address] [place] [address] Dr. Jose Marsh MONO # 1.0 103/ul Critically high 0.3-0.8 [facility] Comment on above: Performed By: #### C BC #### [facility] [address] [place] [address] Dr. Jose Marsh Monocytes/100 WBC (Bld) 18.4 % Critically high 1.7-12.0 [facility] Comment on above: Performed By: #### C BC #### [facility] [address] [place] [address] Dr. Jose Marsh NEUT # 2.8 103/ul Normal 1.4-6.5 [facility] Comment on above: Performed By: #### C BC #### [facility] [address] [place] [address] Dr. Jose Marsh Neutrophils/100 WBC (Bld) 51.1 % Normal 43.0-75.0 [facility] Comment on above: Performed By: #### C BC #### [facility] [address] [place] [address] Dr. Jose Marsh Platelet mean volume (Bld) [Entitic vol] 9.6 fL Normal 9.5-13.5 [facility] Comment on above: Performed By: #### C BC #### [facility] [address] [place] [address] Dr. Jose Marsh PLT 274 103/ul Normal 150-450 [facility] Comment on above: Performed By: #### C BC #### [facility] [address] [place] [address] Dr. Jose Marsh RBC 4.50 106/ul Normal 4.20-5.40 [facility] Comment on above: Performed By: #### C BC #### [facility] [address] [place], [place] [address] Dr. Jose Marsh WBC 5.6 103/ul Normal 4.0-11.0 [facility] Comment on above: Performed By: #### C BC #### [facility] [address] [place], [place] [address] Dr. Jose Marsh CTA CHEST WO W [...] LUCY ERVIN Date: 2022-04-24 11:00 Normal [facility]on 03-29 SARS-CoV-2 (COVID-19) RNA MIGUEL+probe Ql (Unsp spec) Not detected Normal NOT DETECTED [facility] Comment on above: Result Comment: When [...] for this test is supported by the Pattern Shop Supervisor of Health and Human Service's declaration that [...] used). Performed By: #### C VDTBH #### [facility] [address] [place] [address] Dr. Jose Marsh D-DIMERon 04-24-2022 D-DIMER 1.47 mg/L FEU Critically high <=0.59 [facility] Comment on above: Performed By: #### D DIM #### [facility] [address] [place] [address] Dr. Jose Marsh D-DIMER COMMENTS SEE BELOW Normal [facility] Comment on above: Result Comment: Incr eases [...] hospitalization. Performed By: #### D DIM #### [facility] [address] [place] [address] Dr. Jose Marsh INFLUENZA A AND B AGon 04-24 INFLUANEGH SEE BELOW Normal [facility] Comment on above: Result Comment: Nega tive for Flu A protein angiten. Infection due to Flu A cannot be ruled out. Flu A angiten in the sample may be below the detection limit of the test. Performed By: #### I NFLUAB #### [facility] [address] [place] [address] Dr. Jose Marsh INFLUBNEGH SEE BELOW Normal [facility] Comment on above: Result Comment: Nega tive for Flu B protein antigen. Infection due to Flu B cannot be ruled out. Flu B antigen in the sample may be below the detection limit of the test. Performed By: #### I NFLUAB #### [facility] [address] [place] [address] Dr. Jose Marsh INFLUENZA A AG Negative Normal NEGATIVE SEE COMMENT [facility] Comment on above: Performed By: #### I NFLUAB #### [facility] [address] [place] [address] Dr. Jose Marsh INFLUENZA B AG Negative Normal NEGATIVE SEE COMMENT [facility] Comment on above: Performed By: #### I NFLUAB #### [facility] [address] [place] [address] Dr. Jose Marsh INTERNAL CONTROLS Within Normal Limits Normal Wi thin Normal Limits [facility] Comment on above: Performed By: #### I NFLUAB #### [facility] [address] [place] [address] Dr. Jose Marsh TROPONIN, HIGH SENSITIVITYon 04-24-2022 HSTROP <4.0 Normal 4.0-51.3 [facility] Comment on above: Result Comment: CUT- OFF POINTS HAVE BEEN ESTABLISHED BASED ON THE FOURTH UNIVERSAL DEFINITIONS OF MYOCARDIAL INFARCTION. THE UPPER REFERENCE LIMIT (URL) OF TROPONIN, DEFINED THE 99TH PERCENTILE OF cTnI DISTRIBUTION IN A REFERENCE POPULATION, HAS BEEN CONFIRMED THE DECISION THRESHOLD FOR PA DIAGNOSIS. Performed By: #### H STROPN #### [facility] [address] [place] [address] Dr. Jose Marsh XR CHEST 1 Von [...] ALEXANDER ORNELAS Date: 2022-04-24 09:40 Normal [facility] Lab Reportson 11-21-2019 Lab Reports [id number]#1. 00CD:127 [facility] Pre-Certification Formon Pre-Certification Form [id number]#1. 00CD:127 [facility] Ambulatory Clinical Summaryo n 11-10-2019 Ambulatory Clinical Summary {[id number]}CD:[id number] [facility] Facesheeton 11-06-2019 Facesheet [id number] .00CD:127 [facility] Physician Referralon 020 Physician Referral [id number]#1. 00CD:127 [facility] Ambulatory Patient Summaryon 08-08-2018 Ambulatory Patient Summary [address], [address] Visit Summary For CARLOS SMITH We would like to thank you for allowing us to assist you with your healthcare needs. Our entire staff strives to provide an excellent experience for our patients and their families. The following includes information regarding your visit. Age: 33 years Sex: FEMALE : 1985 Address: [address] [place] [address], [facility] Home: Work: -- Mobile: -- Primary Care Provider: Dario Morton MD Race: White Ethnicity: Not or Language: Guatemalan Health Plan: 1[facility] Reason for Visit: sinus infection X1 week Follow-Up Information Referral Orders R Established Office Appt Request *Est. 02/08/19 +/- 28 day(s), Future Order, MS reg, MD ULYSSES [facility] Established Office Appt Request *Est. 02/11/19 +/- 4 day(s), Future Order, re headaches, Dario Morton MD Future Appointments [facility] Clinic Phone: -- Fax: -- Appt. [...] Non-Formulary) Take 1 drink(s) Oral every day [facility] Patient Handouton 08-08-2018 Patient Handout [facility] Patient Handouton 07-18-2018 Patient Handout [id number] 0OTGTIFF [facility] Patient Handout [id number] 0OTGTIFF [facility] Ambulatory Patient Summaryon 07-17-2018 Ambulatory Patient Summary [address], [facility], [address] Visit Summary For CARLOS SMITH We would like to thank you for allowing us to assist you with your healthcare needs. Our entire staff strives to provide an excellent experience for our patients and their families. The following includes information regarding your visit. Age: 33 years Sex: FEMALE : 1985 Address: [address] [place] [address], [facility] Home: Work: -- Mobile: -- Primary Care Provider: Selene HARMAN, Dario Del Valle Race: White Ethnicity: Not or Language: Guatemalan Health Plan: 1?[facility] Reason for Visit: New patient exam Follow-Up Information Referral Orders [facility] Established Office Appt Request *Est. 08/14/18 +/- 4 day(s), Future Order, re headaches, Dario Morton MD Future Appointments [facility] Clinic Phone: -- Fax: -- Appt. [...] Dipstick: 6.5 Blood Urine Dipstick: Negative Specific [place] Urine Dipstick: 1.020 Ketones Urine Dipstick: Other: [...] Non-Formulary) Take 1 drink(s) Oral every day [facility] Patient Handouton 07-17-2018 Patient Handout [facility] Vital Signs Date Time Vital Sign Value Performing Clinician Faci lity 06-28-2023 10:56-0500 Body mass index (BMI) [Ratio] 25.63 kg/m2 Amy Liborio DO Work Phone: [facility] 06-28-2023 10:56-0500 Body weight 72.03 kg Amy Liborio DO Work Phone: [facility] 06-28-2023 10:56-0500 Diastolic blood pressure 70 mm[Hg] Amy Liborio DO Work Phone: [facility] 06-28-2023 10:56-0500 Systolic blood pressure 108 mm[Hg] Amy Liborio DO Work Phone: [facility] Healthcare Encounters Encounter Date Encounter Type Care Provider Facility Start: 07-09-2023 End: 07-09-2023 ambulatory AMY LIBORIO Not Available Start: 06-28-2023 Clinisync Result Encounter Amy Liborio DO Work Phone: [facility] External Department Unsolicited Start: 06-28-2023 Clinisync Result Encounter Amy Liborio DO Work Phone: [facility] External Department Unsolicited Start: 06-28-2023 End: 06-28-2023 ambulatory AMY LIBORIO Not Available Start: 06-28-2023 End: 06-28-2023 Patient encounter procedure Amy Liborio DO Work Phone: [facility] Healthcare Work Phone: Start: 06-28-2023 End: 06-28-2023 Periodic preventive med est patient 18-39 yrs Amy Liborio DO Work Phone: [facility] Comment on above: Well woman exam with routine gynecological exam Start: 06-18-2023 End: 06-18-2023 ambulatory AMY LIBORIO Not Available Start: 04-24-2022 End: 04-24-[address] [facility] Facility: Start: 03-11-2013 Ambulatory None Facility:[facility] Procedures Date Procedure Procedure Detail Performing Clinician Start: 06-28-2023 IGP,APTIMA HPV,AGE GDLN Amy Liborio DO Work Phone: Plan of Treatment Date Care Activity Detail Author Start: 07-09-2023 End: 07-09-2023 Patient encounter procedure 07/09/2023 2:30 PM EST Procedure Visit [facility] [address] [place] [address] Amy Capone DO [address] [place] [address] Abnormal uterine bleeding (AUB); Preop examination [facility] Comment on above: Abnormal uterine ble eding (AUB); Preop examination Cytology Cervical or vaginal smear or scraping study Pap Smear Pathology and Cytology Routine Well woman exam with routine gynecological exam Ordered: 06/28/2023 [facility] Work Phone: Comment on above: Ordered: 06/28/2023 Human papilloma viru s DNA [Presence] in Unspecified specimen by Probe with amplification HPV DNA probe, amplified Microbiology Routine Well woman exam with routine gynecological exam Ordered: 06/28/2023 [facility] Comment on above: Ordered: 06/28/2023 Payers Date Payer Category Payer Unknown BCBS BCBS [id number] 2021-Present [phone] [address] [place] [address] [id number] 1985 Unknown [id number] 1985 Unknown [id number] 1985 Unknown [id number] 1985 Unknown [id number] 1960 Unknown [id number] Social History Date Type Detail Facility Tobacco smoking stat [facility] Tobacco smoking consumption unknown [facility] Start: 1985 Sex Assigned At Female [facility] Start: 06-18-2023 Gender identity Identifies as female gender (finding) [facility] Start: 06-18-2023 Sexual orientation Heterosexual (fin ding) [facility] History of Present illness Narrative 06-28-2023 Tiffanie [...] nursing note reviewed. Exam conducted with a lap welder present. Vitals: Estimated body mass index is [...] Amy Capone DO documented in this encounter [facility] Healthcare Evaluation note Note Date & Type Note Facility Evaluation note Diagnosis Well woman exam with routine gynecological exam Routine gynecological examination Abnormal uterine bleeding (AUB) Preop examination Unspecified pre-operative examination documented in this encounter [facility] Healthcare Summary Purpose Family History No Family History Records FoundNo Family History Records FoundNo Family History Records FoundNo Family History Records FoundNo Family History Records Found Advance Directives No Advanced Directives Records FoundNo Advanced Directives Records FoundNo Advanced Directives Records FoundNo Advanced Directives Records FoundNo Advanced Directives Records Found Hospital Course Note [facility] Cl inic Clinical Discharge Summary PERSON INFORMATION Name CARLOS SMITH Age 33 Years [birth year] Sex FEMALE Language Guatemalan PCP Selene HARMAN, Dario Del Valle Marital Status Med Service Acct# Arrival 08/08/18 09:20:14 Visit Reason Acuity LOS 000 00:12 Address: [address] [place] [address] Comment: PROVIDER INFORMATION VITALS INFORMATION Vital Sign [...] 20 tab(s), 0 Refill(s), 08/18/18, Pharmacy: [id number] [facility], 1 tab(s) PO q12hr,x10 day(s) Medication List: Fill New (more content not included)... Additional Source Comments INFORMATION SOURCE (unrecogn ized section and content) DATE CREATED AUTHOR 11/20/2017 [facility] DATE CREATED AUTHOR AUTHOR'S ORGANIZ ATION 02/12/2019 [facility] DATE CREATED AUTHOR AUTHOR'S ORGANIZ ATION 10/22/2020 [facility] DATE CREATED AUTHOR AUTHOR'S ORGANIZ ATION [facility]20[facility] DATE CREATED AUTHOR AUTHOR'S ORGANIZ ATION 07/10/2023 [facility] dical Specialists EPIC Reason for Visit (unrecogniz ed section and content) Reason Comments Well Women Visit Care Teams (unrecognized sec tion and content) Support Specialist Relationship Specialty Start Date End Date Henry Dee MD [address] [place] [address] PCP - General Family Medicine 06/28/23 Support Specialist Relationship Specialty Start Date End Date Henry Dee MD [address] [place] [address] PCP - General Family Medicine 06/28/23 FOR [...] BE BASED ON THE PRIMARY CLINICAL RECORDS. [facility] [employer] provides no warranty or guarantee of the accuracy or completeness of information in this document.
== END 2023-07-25 09:00 | disposition home or self-care (01) ==
PROVIDERS: PCP Nurse Practitioner Family; Visit Provider Obstetrics & Gynecology
DX: Z01.818 Encounter for other preprocedural examination (principal); N92.0 Excessive and frequent menstruation with regular cycle; N93.9 Abnormal uterine and vaginal bleeding, unspecified; R10.2 Pelvic and perineal pain

== ENCOUNTER 2023-08-03 06:30 | Day surgery (SDC) | payer BC, SELFPAY ==
[2023-07-25 09:25] VITALS: BP 114/77; PULSE 62; RESP 16; TEMP 36.3; O2SAT 97; BMI 25.3
--- OUTSIDE RECORDS SUMMARY | 2023-08-03 06:32 | XMS_ITS | CCD ---
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 [facility] Comment on above: TESTS RESULT FLAG UN ITS REF RANGE LAB Clinician Provided Cytology Information Source.............Cervix;Endocervix No. of containers..01 ThinPrep Vial Age Algo ACOG Olimpia... FLAG LEGEND: L-Low Normal,H-High Normal,LL-Alert Low,HH-Alert High <-Panic Low,>-Panic High,A-Abnormal,AA-Critical Abnormal Performed at: 01 =[address] [place] [address] Genesis Mohamud MD, HPV APTIMA Negative Negative [facility] Comment on above: This nucleic acid am plification test detects fourteen high- risk HPV types (16,18,31,33,35,39,45,51,52,56,58,59,66,68) without differentiation. Performed at: = - [address], [place] [id number] Test Deck Supervisor: Genesis Mohamud MD, Phone: [phone] Performed at: - [address], [place] [id number] Test Deck Supervisor: Genesis Mohamud MD, Phone: [phone] IGP, APTIMA HPV, RFX 16/18,45 Note . [facility] Comment on above: TESTS RESULT FLAG UN ITS REF RANGE LAB DIAGNOSIS: 02 NEGATIVE FOR INTRAEPITHELIAL LESION OR MALIGNANCY. Specimen adequacy: 02 Satisfactory for evaluation. Endocervical and/or squamous metaplastic cells (endocervical component) are present. Performed by: 02 Bekah Zee Lens Matcher (ASCP) . 02 Note: Note 02 The [...] High,A-Abnormal,AA-Critical Abnormal Performed at: 02 [facility] [address] [place] [address] Genesis Mohamud MD, BRUSH-SPATULA CERVIX ENDOCERVIX [facility] CBC AUTO DIFFon 04-24-2022 BASO # 0.1 103/ul Normal 0.0-0.1 [facility] Comment on above: Performed By: #### C BC #### [facility] [address] [place] [address] Dr. Jose Marsh Basophils/100 WBC (Bld) 1.1 % Normal 0.2-2.0 [facility] Comment on above: Performed By: #### C BC #### [facility] [address] [place] [address] Dr. Jose Marsh EO # 0.2 103/ul Normal 0.0-0.7 [facility] Comment on above: Performed By: #### C BC #### [facility] [address] [place] [address] Dr. Jose Marsh Eosinophils/100 WBC (Bld) 3.6 % Normal 0.9-7.0 [facility] Comment on above: Performed By: #### C BC #### [facility] [address] [place] [address] Dr. Jose Marsh Erythrocyte distribution width (RBC) [Ratio] 12.5 % Normal 11.0-15.0 [facility] Comment on above: Performed By: #### C BC #### [facility] [address] [place] [address] Dr. Jose Marsh Hematocrit (Bld) [Volume fraction] 39.9 % Normal 36.0-48.0 [facility] Comment on above: Performed By: #### C BC #### [facility] [address] [place] [address] Dr. Jose Marsh Hemoglobin (Bld) [Mass/Vol] 13.9 g/dL Normal 12.0-16.0 [facility] Comment on above: Performed By: #### C BC #### [facility] [address] [place] [address] Dr. Jose Marsh IG # 0.01 10e3/ul Normal 0.00-0.03 [facility] Comment on above: Performed By: #### C BC #### [facility] [address] [place] [address] Dr. Jose Marsh IG % 0.2 % Normal 0.0-0.5 [facility] Comment on above: Performed By: #### C BC #### [facility] [address] [place] [address] Dr. Jose Marsh LYMPH # 1.4 103/ul Normal 1.2-3.8 [facility] Comment on above: Performed By: #### C BC #### [facility] [address] [place] [address] Dr. Jose Marsh Lymphocytes/100 WBC (Bld) 25.6 % Normal 20.5-60.0 [facility] Comment on above: Performed By: #### C BC #### [facility] [address] [place] [address] Dr. Jose Marsh MANUAL DIFF REQ NO Normal [facility] Comment on above: Performed By: #### C BC #### [facility] [address] [place] [address] Dr. Jose Marsh MCH (RBC) [Entitic mass] 30.9 pg Normal 26.7-34.0 [facility] Comment on above: Performed By: #### C BC #### [facility] [address] [place] [address] Dr. Jose Marsh MCHC (RBC) [Mass/Vol] 34.8 g/dL Normal 29.9-35.2 [facility] Comment on above: Performed By: #### C BC #### [facility] [address] [place] [address] Dr. Jose Marsh MCV (RBC) [Entitic vol] 88.7 fL Normal 81.0-99.0 [facility] Comment on above: Performed By: #### C BC #### [facility] [address] [place] [address] Dr. Jose Marsh MONO # 1.0 103/ul Critically high 0.3-0.8 [facility] Comment on above: Performed By: #### C BC #### [facility] [address] [place] [address] Dr. Jose Marsh Monocytes/100 WBC (Bld) 18.4 % Critically high 1.7-12.0 [facility] Comment on above: Performed By: #### C BC #### [facility] [address] [place] [address] Dr. Jose Marsh NEUT # 2.8 103/ul Normal 1.4-6.5 [facility] Comment on above: Performed By: #### C BC #### [facility] [address] [place] [address] Dr. Jose Marsh Neutrophils/100 WBC (Bld) 51.1 % Normal 43.0-75.0 [facility] Comment on above: Performed By: #### C BC #### [facility] [address] [place] [address] Dr. Jose Marsh Platelet mean volume (Bld) [Entitic vol] 9.6 fL Normal 9.5-13.5 [facility] Comment on above: Performed By: #### C BC #### [facility] [address] [place] [address] Dr. Jose Marsh PLT 274 103/ul Normal 150-450 [facility] Comment on above: Performed By: #### C BC #### [facility] [address] [place] [address] Dr. Jose Marsh RBC 4.50 106/ul Normal 4.20-5.40 [facility] Comment on above: Performed By: #### C BC #### [facility] [address] [place], [place] [address] Dr. Jose Marsh WBC 5.6 103/ul Normal 4.0-11.0 [facility] Comment on above: Performed By: #### C BC #### [facility] [address] [place], [place] [address] Dr. Jose Marsh CTA CHEST WO W [...] LUCY ERVIN Date: 2022-04-24 11:00 Normal [facility]29 SARS-CoV-2 (COVID-19) RNA MIGUEL+probe Ql (Unsp spec) Not detected Normal NOT DETECTED [facility] Comment on above: Result Comment: [...] for this test is supported by the Fiber Technologist of Health and Human Service's declaration that [...] used). Performed By: #### C VDTBH #### [facility] [address] [place] [address] Dr. Jose Marsh D-DIMERon 04-24-2022 D-DIMER 1.47 mg/L FEU Critically high <=0.59 [facility] Comment on above: Performed By: #### D DIM #### [facility] [address] [place] [address] Dr. Jose Marsh D-DIMER COMMENTS SEE BELOW Normal [facility] Comment on above: Result Comment: Incr [...] hospitalization. Performed By: #### D DIM #### [facility] [address] [place] [address] Dr. Jose Marsh INFLUENZA A AND B AGon 04-24 INFLUANEGH SEE BELOW Normal [facility] Comment on above: Result Comment: Nega tive for Flu A protein angiten. Infection due to Flu A cannot be ruled out. Flu A angiten in the sample may be below the detection limit of the test. Performed By: #### I NFLUAB #### [facility] [address] [place] [address] Dr. Jose Marsh INFLUBNEGH SEE BELOW Normal [facility] Comment on above: Result Comment: Nega tive for Flu B protein antigen. Infection due to Flu B cannot be ruled out. Flu B antigen in the sample may be below the detection limit of the test. Performed By: #### I NFLUAB #### [facility] [address] [place] [address] Dr. Jose Marsh INFLUENZA A AG Negative Normal NEGATIVE SEE COMMENT [facility] Comment on above: Performed By: #### I NFLUAB #### [facility] [address] [place] [address] Dr. Jose Marsh INFLUENZA B AG Negative Normal NEGATIVE SEE COMMENT [facility] Comment on above: Performed By: #### I NFLUAB #### [facility] [address] [place] [address] Dr. Jose Marsh INTERNAL CONTROLS Within Normal Limits Normal Wi thin Normal Limits [facility] Comment on above: Performed By: #### I NFLUAB #### [facility] [address] [place] [address] Dr. Jose Marsh TROPONIN, HIGH SENSITIVITYon 04-24-2022 HSTROP <4.0 Normal 4.0-51.3 [facility] Comment on above: Result Comment: CUT- OFF POINTS HAVE BEEN ESTABLISHED BASED ON THE FOURTH UNIVERSAL DEFINITIONS OF MYOCARDIAL INFARCTION. THE UPPER REFERENCE LIMIT (URL) OF TROPONIN, DEFINED THE 99TH PERCENTILE OF cTnI DISTRIBUTION IN A REFERENCE POPULATION, HAS BEEN CONFIRMED THE DECISION THRESHOLD FOR MA DIAGNOSIS. Performed By: #### H STROPN #### [facility] [address] [place] [address] Dr. Jose Marsh XR CHEST 1 Von [...] ALEXANDER ORNELAS Date: 2022-04-24 09:40 Normal [facility] Lab Reportson 11-21-2019 Lab Reports [id number]#1. 00CD:127 [facility] Pre-Certification Formon Pre-Certification Form [id number]#1. 00CD:127 [facility] Ambulatory Clinical Summaryo n 11-10-2019 Ambulatory Clinical Summary {[id number]}CD:[id number] [facility] Facesheeton 11-06-2019 Facesheet [id number] .00CD:127 [facility] Physician Referralon 020 Physician Referral [id number]#1. 00CD:127 [facility] Ambulatory Patient Summaryon 08-08-2018 Ambulatory Patient Summary [address], [address] Visit Summary For CARLOS SMTIH We would like to thank you for allowing us to assist you with your healthcare needs. Our entire staff strives to provide an excellent experience for our patients and their families. The following includes information regarding your visit. Age: 33 years Sex: FEMALE : 1985 Address: [address] [place] [address], [facility] Home: Work: -- Mobile: -- Primary Care Provider: Dario Morton MD Race: White Ethnicity: Not or Language: Iranian Health Plan: 1?[facility] Reason for Visit: sinus infection X1 week Follow-Up Information Referral Orders R Established Office Appt Request *Est. 02/08/19 +/- 28 day(s), Future Order, MS reg, MD ULYSSES Hudson Established Office Appt Request *Est. 02/11/19 +/- 4 day(s), Future Order, re headaches, Dario Morton MD Future Appointments [facility] Phone: -- Fax: -- Appt. [...] Non-Formulary) Take 1 drink(s) Oral every day [facility] Patient Handouton 08-08-2018 Patient Handout [facility] Patient Handouton 07-18-2018 Patient Handout [id number] 0OTGTIFF [facility] Patient Handout [id number] 0OTGTIFF [facility] Ambulatory Patient Summaryon 07-17-2018 Ambulatory Patient Summary [address], [facility], [address] Visit Summary For CARLOS SMITH We would like to thank you for allowing us to assist you with your healthcare needs. Our entire staff strives to provide an excellent experience for our patients and their families. The following includes information regarding your visit. Age: 33 years Sex: FEMALE : 1985 Address: [address] [place] [address], [facility] Home: Work: -- Mobile: -- Primary Care Provider: Selene HARMAN, Dario Del Valle Race: White Ethnicity: Not or Language: Iranian Health Plan: 1?[facility] Reason for Visit: New patient exam Follow-Up Information Referral Orders [facility] Established Office Appt Request *Est. 08/14/18 +/- 4 day(s), Future Order, re headaches, Dario Morton MD Future Appointments [facility] Clinic Phone: -- Fax: -- Appt. [...] Dipstick: 6.5 Blood Urine Dipstick: Negative Specific [place] Urine Dipstick: 1.020 Ketones Urine Dipstick: Other: [...] Non-Formulary) Take 1 drink(s) Oral every day [facility] Patient Handouton 07-17-2018 Patient Handout [facility] Vital Signs Date Time Vital Sign Value Performing Clinician Faci lity 06-28-2023 10:56-0500 Body mass index (BMI) [Ratio] 25.63 kg/m2 Amy Liborio DO Work Phone: [facility] 06-28-2023 10:56-0500 Body weight 72.03 kg Amy Liborio DO Work Phone: [facility] 06-28-2023 10:56-0500 Diastolic blood pressure 70 mm[Hg] Amy Liborio DO Work Phone: [facility] 06-28-2023 10:56-0500 Systolic blood pressure 108 mm[Hg] Amy Liborio DO Work Phone: [facility] Healthcare Encounters Encounter Date Encounter Type Care Provider Facility Start: 07-09-2023 End: 07-09-2023 ambulatory AMY LIBORIO Not Available Start: 06-28-2023 Clinisync Result Encounter Amy Liborio DO Work Phone: [facility] External Department Unsolicited Start: 06-28-2023 Clinisync Result Encounter Amy Liborio DO Work Phone: [facility] External Department Unsolicited Start: 06-28-2023 End: 06-28-2023 ambulatory AMY LIBORIO Not Available Start: 06-28-2023 End: 06-28-2023 Patient encounter procedure Amy Liborio DO Work Phone: [facility] Work Phone: Start: 06-28-2023 End: 06-28-2023 Periodic preventive med est patient 18-39 yrs Amy Liborio DO Work Phone: [facility] Comment on above: Well woman exam with routine gynecological exam Start: 06-18-2023 End: 06-18-2023 ambulatory AMY LIBORIO Not Available Start: 04-24-2022 End: 04-24-[address] HENLEY [facility] Facility: Start: 03-11-2013 Ambulatory None Facility:[facility] Procedures Date Procedure Procedure Detail Performing Clinician Start: 06-28-2023 IGP,APTIMA HPV,AGE GDLN Amy Liborio DO Work Phone: Plan of Treatment Date Care Activity Detail Author Start: 07-09-2023 End: 07-09-2023 Patient encounter procedure 07/09/2023 2:30 PM EST Procedure Visit [facility] [address] [place] [address] Amy Capone DO [address] [place] [address] Abnormal uterine bleeding (AUB); Preop examination [facility] Comment on above: Abnormal uterine ble eding (AUB); Preop examination Cytology Cervical or vaginal smear or scraping study Pap Smear Pathology and Cytology Routine Well woman exam with routine gynecological exam Ordered: 06/28/2023 [facility] Work Phone: Comment on above: Ordered: 06/28/2023 Human papilloma viru s DNA [Presence] in Unspecified specimen by Probe with amplification HPV DNA probe, amplified Microbiology Routine Well woman exam with routine gynecological exam Ordered: 06/28/2023 [facility] Comment on above: Ordered: 06/28/2023 Payers Date Payer Category Payer Unknown BCBS BCBS xxxxxx [id number] 2021-Present [phone] [address] [place] [address] [id number] 1985 Unknown [id number] 1985 Unknown [id number] 1985 Unknown [id number] 1985 Unknown [id number] 1960 Unknown [id number] Social History Date Type Detail Facility Tobacco smoking stat [facility] Tobacco smoking consumption unknown [facility] Start: 1985 Sex Assigned At Female [facility] Start: 06-18-2023 Gender identity Identifies as female gender (finding) [facility] Start: 06-18-2023 Sexual orientation Heterosexual (fin ding) [facility] History of Present illness Narrative 06-28-2023 Tiffanie Ramirez LPN - 06/28/2023 10:20 AM EST Note Date & Type Note Facility 06-28-2023 History of Presen t illness Narrative Reason for Appointment: Patient ID: Carlos Delgadillo is a 38 y.o. female who presents [...] nursing note reviewed. Exam conducted with a mother helper present. Vitals: Estimated body mass index is [...] Amy Capone DO documented in this encounter [facility] Evaluation note Note Date & Type Note Facility Evaluation note Diagnosis Well woman exam with routine gynecological exam Routine gynecological examination Abnormal uterine bleeding (AUB) Preop examination Unspecified pre-operative examination documented in this encounter [facility] Summary Purpose Family History No Family History Records FoundNo Family History Records FoundNo Family History Records FoundNo Family History Records FoundNo Family History Records Found Advance Directives No Advanced Directives Records FoundNo Advanced Directives Records FoundNo Advanced Directives Records FoundNo Advanced Directives Records FoundNo Advanced Directives Records Found Hospital Course Note [facility] Cl inic Clinical Discharge Summary PERSON INFORMATION Name CARLOS SMITH Age 33 Years [birth year] Sex FEMALE Language Iranian PCP Selene HARMAN, Dario Del Valle Marital Status Med Service Acct# Arrival 08/08/18 09:20:14 Visit Reason Acuity LOS 000 00:12 Address: [address] [place] [address] Comment: PROVIDER INFORMATION VITALS INFORMATION Vital Sign [...] 20 tab(s), 0 Refill(s), 08/18/18, Pharmacy: [facility] [facility], 1 tab(s) PO q12hr,x10 day(s) Medication List: Fill New (more content not included)... Additional Source Comments INFORMATION SOURCE (unrecogn ized section and content) DATE CREATED AUTHOR 11/20/2017 [facility] DATE CREATED AUTHOR AUTHOR'S ORGANIZ ATION 02/12/2019 [facility] DATE CREATED AUTHOR AUTHOR'S ORGANIZ ATION 10/22/2020 [facility] DATE CREATED AUTHOR AUTHOR'S ORGANIZ ATION 04/27/2022 [facility] DATE CREATED AUTHOR AUTHOR'S ORGANIZ ATION 07/10/2023 [facility] EPIC Reason for Visit (unrecogniz ed section and content) Reason Comments Well Women Visit Care Teams (unrecognized sec tion and content) Woodworking Shop Laborer Relationship Specialty Start Date End Date Henry Dee MD [address] [place] [address] PCP - General Family Medicine 06/28/23 Woodworking Shop Laborer Relationship Specialty Start Date End Date Henry Dee MD [address] [place] [address] PCP - General Family Medicine 06/28/23 FOR [...] BE BASED ON THE PRIMARY CLINICAL RECORDS. [facility] [employer] provides no warranty or guarantee of the accuracy or completeness of information in this document.
[2023-08-03 06:37] LABS: Basophils Absolute Auto 0.1 10^3/uL (0.0-0.1); Eosinophils Absolute Auto 0.2 10^3/uL (0.0-0.7); Eosinophils Percent Auto 2.1 % (0.9-7.0); Hematocrit 41.6 % (36.0-48.0); Hemoglobin 13.6 g/dL (12.0-16.0); Immature Granulocytes Abs Auto 0.01 10^3/uL (0.00-0.03); Immature Granulocytes Pct Auto 0.1 % (0.0-0.5); Lymphocytes Absolute Auto 2.4 10^3/uL (1.2-3.8); Lymphocytes Percent Auto 34.5 % (20.5-60.0); Mean Corpuscular HGB Conc 32.7 g/dL (29.9-35.2); Mean Corpuscular Hemoglobin 30.4 pg (26.7-34.0); Mean Corpuscular Volume 93.1 fL (81.0-99.0); Mean Platelet Volume 9.5 fL (9.5-13.5); Monocytes Absolute Auto 0.7 10^3/uL (0.3-0.8); Monocytes Percent Auto 10.2 % (1.7-12.0); Neutrophils Absolute Auto 3.6 10^3/uL (1.4-6.5); Neutrophils Percent Auto 52.1 % (43.0-75.0); Platelet Count 328 10^3/uL (150-450); Red Blood Count 4.47 10^6/uL (4.20-5.40); Red Cell Distribution Width 13.2 % (11.0-15.0)
[2023-08-03 07:01] LABS: HCG Quantitative <1 mIU/mL
[2023-08-03 07:03] VITALS: BP 129/83; PULSE 65; RESP 16; TEMP 35.8; O2SAT 95
[2023-08-03] MEDS: LACTATED RINGER'S SOLUTION 1,000 ML 50 ML IV (07:13)
--- NOTE | 2023-08-03 08:04 | PM.ONB ---
Brief Operative Note Date of procedure: 08/03/23 Pre-op diagnosis: menorrhagia Post-op diagnosis: same as pre-op Procedure: NAME OF PROCEDURE: [ ] Amanda endometrial ablation with hysteroscopy. PROCEDURE: The patient was taken back to the OR where she was prepped and draped in the normal sterile fashion after being placed in the dorsal lithotomy position, after being placed under general anesthesia without difficulty.? A weighted speculum was placed into the vagina. The anterior lip was grasped with a single tooth tenaculum. The patient was then sounded to approximated 8cm. The patient?s cervix was gently dilated using hegardilators. The hysteroscope was passed through the cervix into the uterus where both ostia were seen. No gross evidence of polyps, fibroids or malignancy. The cervical length was noted to be 4 cm. The total cavity length is 4cm.? The Amanda ablation apparatus was set to approximately 4cm in length. This was placed through the cervix and into the uterus. After the seal was tested, at that time the total ablation of 120 seconds was performed with the Amanda withoutdifficulty. All instruments were removed from the vagina. Excellent hemostasis noted.? Sponge and lap count correct times 2.? Patient taken to recovery in stable condition. Anesthesia: GETA Surgeon: Adarsh Capone Estimated blood loss (mL): 5 Pathology: none sent Condition: stable Disposition: floor Urinary Catheter Management Urinary Catheter Management Straight: Cath placed during this visit: no
[2023-08-03 08:06] VITALS: BP 97/59; PULSE 58; RESP 16; O2SAT 97
[2023-08-03 08:21] VITALS: BP 121/88; PULSE 74; RESP 16; O2SAT 99
--- NOTE | 2023-08-03 08:29 | PC.NURSE ---
Family members present; peripad dry
[2023-08-03 08:51] VITALS: BP 123/79; PULSE 53; RESP 16; O2SAT 96
--- NOTE | 2023-08-03 08:56 | PC.NURSE ---
Denies urge to void; peripad dry
[2023-08-03 09:21] VITALS: BP 120/81; PULSE 47; RESP 16; O2SAT 99
--- NOTE | 2023-08-03 09:26 | PC.NURSE ---
Up to bathroom and voids clear yellow without difficulty
== END 2023-08-03 09:33 | disposition home or self-care (01) ==
PROVIDERS: PCP Nurse Practitioner Family; Visit Provider Obstetrics & Gynecology
PROC: (CPT 952; principal; 2023-08-03 07:30)
DX: N92.0 Excessive and frequent menstruation with regular cycle (principal); R10.2 Pelvic and perineal pain; N93.9 Abnormal uterine and vaginal bleeding, unspecified
CPT/HCPCS: 58563; 36415; 84702; 85025; J1094; J2704